=== PATIENT | female | born 1975 | race African-American/Black ===

== ENCOUNTER 2020-03-19 14:49 | Emergency (ER) | payer MEDICAID ==
[~2020-03-19] VITALS: Ht 165.1 cm; Wt 60.0 kg
[2020-03-19] MEDS ORDERED: KETOROLAC 60MG/2ML VIAL IM ONE (15:45)
[2020-03-19 16:03] VITALS: BP 118/87
== END 2020-03-19 17:39 | disposition home or self-care (01) ==
LOC: ER 14:49
DX: M54.5 Low back pain (principal); F12.10 Cannabis abuse, uncomplicated; J45.909 Unspecified asthma, uncomplicated; Z87.39 Personal history of other diseases of the musculoskeletal system and connective tissue
CPT/HCPCS: 71045; 96372; 99283; J1885

== ENCOUNTER 2025-02-15 13:32 | Emergency (ER) | payer MEDICAID ==
[~2025-02-15] VITALS: Ht 177.8 cm; Wt 90.0 kg
[2025-02-15 13:38] VITALS: TEMP 36.8; O2SAT 99
[2025-02-15] MEDS: KETOROLAC 30MG/ML VIAL IM ONE (14:46)
[2025-02-15] MEDS: HYDROCODONE/ACETAMINOPHEN 5/325MG TABLET PO ONE (15:31)
[2025-02-15 15:38] LABS: BASOPHILS % 1.0 % (0.0-2.0); EOSINOPHILS % 7.0 % (0.0-5.0); HEMATOCRIT. 33.2 % (36.0-48.0); HEMOGLOBIN. 10.7 g/dL (12.0-16.0); LYMPHOCYTES % 40.9 % (20.0-50.0); MEAN PLATELET VOLUME 8.8 fl (7.4-10.4); MONOCYTES % 6.7 % (2.0-8.0); NEUTROPHILS % 44.4 % (40.0-76.0); PLATELET 272 x1000/uL (130-400); RED BLOOD CELL COUNT 3.93 mill/uL (4.2-5.4); RED CELL DISTRIBUTION WIDTH 14.0 % (11.6-14.6)
[2025-02-15 16:01] LABS: CREATININE 0.7 mg/dL (0.6-1.0); UREA NITROGEN BLOOD 9 mg/dL (9-23)
[2025-02-15] MEDS ORDERED: DICL100G58 TP (16:12)
[2025-02-15] MEDS ORDERED: LIDO700A30 TP (16:12)
[2025-02-15 16:40] VITALS: BP 135/74; PULSE 63; RESP 16; O2SAT 100
== END 2025-02-15 16:42 | disposition home or self-care (01) ==
LOC: ER 13:32
DX: G62.9 Polyneuropathy, unspecified (principal); F12.90 Cannabis use, unspecified, uncomplicated; M19.90 Unspecified osteoarthritis, unspecified site; J45.909 Unspecified asthma, uncomplicated; Z79.899 Other long term (current) drug therapy; Z88.5 Allergy status to narcotic agent
CPT/HCPCS: 99283; 80048; 83735; 85025; 36415; 96372; J1885